=== PATIENT | female | born 2000 | race Caucasian/White ===

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

== ENCOUNTER 2018-07-06 12:10 | Emergency (ER) | payer MEDICAID, OTHER ==
[~2018-07-06] VITALS: Ht 157.5 cm; Wt 106.1 kg
[2018-07-06 12:20] VITALS: BP 119/62
--- NOTE | 2018-07-06 12:42 | NUR ---
PT AMBULATED TO ER BED 05
--- NOTE | 2018-07-06 12:49 | NUR ---
PT BIB FAMILY C/O LT BREAST PAIN. STATES SHE HAS AN ABCESS NEXT TO HER NIPPLE THAT SHE WAS GIVEN ABX FOR BY HER PCP, NAME UNKNOWN. WHEN SHE WOKE UP THIS MORNING, IT WAS DRAINING PUS. PT REPORTS THICK YELLOW GREENISH DISCHARGE. REPORTS SHARP 7/10 PAIN WITH MOVEMENT, TREATED WTIH ADVIL WITH SOME RELIEF. DENIES N/V/D/FEVER. PT HAD BABY ON 06/08/18, STATES SHE IS NOT BREAST FEEDING. VSS. ER TO SEE PT. MEDHX:DENIES RX:ADVIL
--- NOTE | 2018-07-06 14:21 | NUR ---
PT RESTING IN BED. PT REPORTS LT BREAST PAIN AT 7/10 AT THIS TIME. PT STATES ABSCESS DRAINING THICK WHITISH GREEN DISCHARGE CONTROLLED WITH GAUZE. VSS.
[2018-07-06 15:06] VITALS: BP 129/79
--- NOTE | 2018-07-06 15:06 | NUR ---
Patient discharged with v/s stable. Written and verbal after care instructions given and explained. Patient alert, oriented and verbalized understanding of instructions. Ambulatory with steady gait. All questions addressed prior to discharge. ID band removed. Patient advised to follow up with PMD. Rx of NORCO, MOTRIN, AND BACTRIM given. Patient educated on indication of medication including possible reaction and side effects. Opportunity to ask questions provided and answered.
== END 2018-07-06 15:06 | disposition home or self-care (01) ==
LOC: MED 12:10
DX: N61.1 Abscess of the breast and nipple (principal)
CPT/HCPCS: 99283

== ENCOUNTER 2022-05-05 16:52 | Emergency (ER) | payer MEDICAID ==
[~2022-05-05] VITALS: Ht 162.6 cm; Wt 98.9 kg
[2022-05-05 17:02] VITALS: BP 155/71
[2022-05-05 17:31] LABS: BASOPHILS # (AUTO) 0.1 K/uL (0.00-0.22); BASOPHILS % (AUTO) 0.8 % (0.0-2.0); EOSINOPHILS % (AUTO) 0.1 % (0.0-4.0); HEMATOCRIT 37.7 % (36-48); HEMOGLOBIN 12.5 g/dL (12.0-16.0); LYMPHOCYTES % (AUTO) 17.1 % (20.5-51.1); MEAN CORPUSCULAR HEMOGLOBIN 30 pg (27-31); MEAN CORPUSCULAR HGB CONC 33 g/dL (33-37); MEAN CORPUSCULAR VOLUME 88.8 fL (80-94); MONOCYTES # (AUTO) 0.6 K/uL (0.8-1.0); MONOCYTES % (AUTO) 5.5 % (1.7-9.3); NEUTROPHILS # (AUTO) 8.9 K/uL (1.8-7.7); NEUTROPHILS % (AUTO) 76.5 % (42.2-75.2); PLATELET COUNT (AUTO) 362 K/uL (140-450); RED BLOOD CELL COUNT(AUTO) 4.24 MIL/uL (4.20-5.40); RED CELL DISTRIBUTION WIDTH 13.1 % (11.6-13.7); WHITE BLOOD COUNT (AUTO) 11.6 K/uL (4.8-10.8)
[2022-05-05 17:55] LABS: CARBON DIOXIDE 28.3 mmol/L (21-32); CREATININE 0.8 mg/dL (0.6-1.3); POTASSIUM 3.3 mmol/L (3.5-5.1); TOTAL BILIRUBIN 0.4 mg/dL (0.0-1.0)
--- NOTE | 2022-05-05 17:55 | NUR ---
22YO FEMALE PT C/O CRAMPING MID ABDOMINAL PAIN AND YELLOW UMBILICAL DRAINAGE XYESTERDAY. REPORTS SUDDEN INTERMITTENT EPISODES ALONG W/ FEVER AND N/V/D-blood. PAIN AT MOST WHEN BEARING DOWN. ABD NON TENDER OR DISTENDED. RELIEF AFTER MOTRIN AND DENIES AFTER PEPTO. NO ACTIVE UMBILICAL DRAINAGE. DENIES RECENT INJURY, FEVER OR CHILLS. PT AAOX4, NO VISIBLE DISTRESS. HOB POSITIONED PER COMFORT HX:DENIES NKA
[2022-05-05] MEDS: ONDANSETRON 4 MG ODT PO ONE (18:12)
[2022-05-05] MEDS: KETOROLAC 30 MG/ML VIAL IM ONE (18:13)
--- NOTE | 2022-05-05 18:21 | NUR ---
PT TAKEN TO CT VIA WHEELCHAIR
--- NOTE | 2022-05-05 18:32 | NUR ---
PT BROUGHT BACK VIA WHEELCHAIR
[2022-05-05 18:58] LABS: APPEARANCE,URINE CLEAR (CLEAR); BILIRUBIN,URINE SMALL (NEGATIVE); BLOOD, URINE TRACE-I (NEGATIVE); COLOR,URINE YELLOW (YELLOW); LEUKOCYTE ESTERASE ,URINE NEGATIVE (NEGATIVE); NITRITE, URINE NEGATIVE (NEGATIVE); PH,URINE 6.5 (5.0-9.0); UGLUCOSE NEGATIVE (NEGATIVE)
[2022-05-05 19:19] LABS: WBC,URINE 0-5 /HPF (0-5)
[2022-05-05 19:20] LABS: OTHER CASTS, URINE None Seen /LPF (None Seen)
--- NOTE | 2022-05-05 19:20 | NUR ---
REPORT GIVEN TO KIMBER ACE. TRANSFER OF CARE AT THIS TIME
[2022-05-05] MEDS ORDERED: ONDA-188 PO (19:31)
--- NOTE | 2022-05-05 20:08 | NUR ---
SWAB COLLECTED AND TAKEN TO LAB
[2022-05-05 20:10] VITALS: BP 111/66
== END 2022-05-05 20:10 | disposition home or self-care (01) ==
LOC: MED 16:52
DX: R11.2 Nausea with vomiting, unspecified (principal); Z20.822 Contact with and (suspected) exposure to COVID-19; R19.7 Diarrhea, unspecified; N83.202 Unspecified ovarian cyst, left side; E87.6 Hypokalemia; Z79.899 Other long term (current) drug therapy
CPT/HCPCS: 36415; 74177; 80053; 81001; 81025; 83690; 85025; 87086; 87426; 96372; 99285; J1885; Q0162; Q9967